=== PATIENT | female | born 1960 ===

== ENCOUNTER → 2018-12-02 | Day surgery (SDC) | payer BC ==
[2018-12-02] VITALS (9 sets, daily range): BP systolic 114–138; BP diastolic 62–74
[~2018-12-02] VITALS: Ht 157.5 cm; Wt 48.1 kg
[~2018-12-02] MED LIST: AMLODIPINE BESYL5 MG ORAL; ASPIR 8181 MG ORAL; DiphenhydrAMINE 50mg/ml Inj IVP PRN; LIPITOR10 MG ORAL; LISINOPRIL20 MG ORAL; LR 1000ml 1,000 ML IVLG SCH; LR 1000ml ONE; Lidocaine 1% MPF 10mg/ml 5ml ONE; METOPROLOL SUCC25 MG ORAL; Propofol 200mg/20ml IV ONE; vit B12 PO; vit D PO
--- NOTE | 2018-12-02 07:40 | Anethesia Preoperative Eval ---
Anesthesia Pre-op PMH/ROS General Date of Evaluation: Dec 02, 2018 Anesthesiologist: Ghulam ASA Score: ASA 2 Mallampati Score Class I : Soft palate, uvula, fauces, pillars visible Class II: Soft palate, uvula, fauces visible Class III: Soft palate, base of uvula visible Class IV: Only hard plate visible Mallampati Classification: Class II Surgeon: Violeta Diagnosis: Abdominal pain, screening Surgical Procedure: EGd and colonoscopy Anesthesia History: none Family History: no anesthesia problems Allergies: Coded Allergies: No Known Allergies (Unverified , 12/01/18) Medications: see eMAR Patient NPO?: Yes NPO Date: Dec 01, 2018 NPO Time: 22:00 Past Medical History Cardiovascular: Reports: HTN, other - HLD; Denies: CAD, SC, valve dz, arrhythmia Pulmonary: Denies: asthma, COPD, SHRUTI, other Gastrointestinal/Genitourinary: Reports: GERD; Denies: CRI, ESRD, other Neurologic/Psychiatric: Denies: dementia, CVA, depression/anxiety, TIA, other Endocrine: Denies: DM, hypothyroidism, steroids, other HEENT: Denies: cataract (L), cataract (R), glaucoma, KAIBAB (L), KAIBAB (R), other Hematology/Immune: Denies: anemia, DVT, bleeding disorder, other Musculoskeletal/Integumentary: Denies: OA, RA, DJD, DDD, edema, other PSxH Narrative: Denies Anesthesia Pre-op Phys. Exam Physician Exam see chart Constitutional: NAD Cardiovascular: RRR Respiratory: CTA Airway Exam Mallampati Score: Class II Anesthesia Pre-op A/P Labs see chart Studies Pre-op Studies: EKG - sr Risk Assessment & Plan Assessment: ASA II Plan: MAC Status Change Before Surgery: No Pre-Antibiotics Drug: N/a Judi Manuel MD Dec 02, 2018 07:40
--- NOTE | 2018-12-02 08:13 | Pre-Procedure Note/Attestation ---
Pre-Procedure Note/Attestation Complete Prior to Procedure Planned Procedure: not applicable Procedure Narrative: esophagogastroduodenoscopy colonoscopy Indications for Procedure Pre-Operative Diagnosis: abd pain screen Attestation I attest that I discussed the nature of the procedure; its benefits; risks and complications; and alternatives (and the risks and benefits of such alternatives ), prior to the procedure, with the patient (or the patient's legal accounts receivable representative). I attest that, if there was a reasonable possibility of needing a blood transfusion, the patient (or the patient's legal accounts receivable representative) was given the [facility] standardized written summary, pursuant to the [place] Blood Safety Act ([place] Health and Safety Code # 1645, as amended). I attest that I re-evaluated the patient just prior to the surgery and that there has been no change in the patient's H&P, except as documented below: Geraldine Mcdaniel MD Dec 02, 2018 08:13
--- NOTE | 2018-12-02 08:13 | Short Stay Surgery H&P ---
History of Present Illness History of Present Illness Chief Complaint see typed H&P HPI Javy Tejeda is a 58 year old female who was admitted on for Screening And Abdominal Pain Patient History Allergies: Coded Allergies: No Known Allergies (Unverified , 12/01/18) Medication History Scheduled Amlodipine Besylate* (Amlodipine Besylate*), 5 MG ORAL DAILY, (Reported) Aspirin* (Aspir 81*), 81 MG ORAL DAILY, (Reported) Atorvastatin Calcium* (Lipitor*), 10 MG ORAL DAILY, (Reported) Lisinopril (Lisinopril*), 20 MG ORAL DAILY, (Reported) Metoprolol Succinate* (Metoprolol Succinate*), 25 MG ORAL DAILY, (Reported) [vit D], 5,000 INTLU PO DAILY, (Reported) Physical Exam Vital Signs Last Vital Signs Date Time Temp Pulse Resp B/P (MAP) Pulse Ox O2 Delivery O2 Flow Rate FiO2 12/02/18 07:59 Room Air 12/02/18 07:59 98.0 73 18 138/65 100 Plan Attestation Are the patient's medical conditions optimized for surgery? Geraldine Mcdaniel MD Dec 02, 2018 08:13
--- NOTE | 2018-12-02 08:49 | Endoscopy Procedure Note ---
Endoscopy Procedure Note General Indication for Procedure: abd pain , screen Procedures Performed: EGD, colonoscopy Operative Findings/Diagnosis: 1 cm, occ tics, prox gastritis Specimen: yes Pt Tolerated Procedure Well: Yes Estimated Blood Loss: none Anesthesia Anesthesiologist: see attached Anesthesia: MAC Medications Medication Given: see anesthesia record Inserted Devices Implant(s) used?: No GI Core Measures 50 yrs or older w/o bx or poly: Yes 10yrs. F/U recommended: Yes If not recommended, why?: 18 years or older w/prev. colo: No <3yrs. since last colonoscopy: No Med reason:<3 yrs.: System Reason:<3 yrs.: Last colonoscopy >= to 3yrs: Yes Geraldine Mcdaniel MD Dec 02, 2018 08:49
--- NOTE | 2018-12-02 08:51 | Brief Operative Note ---
Immediate Post Operative Note Operative Note Chief Complaint: Abd pain, screen Pre-op Diagnosis: abd pain screen Procedure: egd/bx, colon screen Post-op Diagnosis: Post-op Diagnosis: same as pre-op Surgeon: mago Anesthesiologist: chai Anesthesia: MAC Specimen: yes Complications: none Condition: stable Fluids: recorded Estimated Blood Loss: none Implant(s) used?: No Geraldine Mcdaniel MD Dec 02, 2018 08:51
--- NOTE | 2018-12-02 08:53 | 48 Hour Post Anesthesia Eval ---
Post Anesthesia Evaluation Procedure: EGD and colonoscopy Date of Evaluation: Dec 02, 2018 Airway: patent Nausea: No Vomiting: No Hydration Status: adequate Cardiopulmonary Status: at baseline Mental Status/LOC: patient returned to baseline Post-Anesthesia Complications: 0 Follow-up care needed: ready to discharge Judi Manuel MD Dec 02, 2018 08:53
--- NOTE | 2018-12-02 08:53 | Immediate Post-Op Evaluation ---
Immediate Post-Op Evalulation Immediate Post-Op Evalulation Procedure: EGD and colonoscopy Date of Evaluation: Dec 02, 2018 Time of Evaluation: 08:53 IV Fluids: 500 Blood Products: 0 Estimated Blood Loss: 0 Urinary Output: 0 Blood Pressure Systolic: 114 Blood Pressure Diastolic: 62 Pulse Rate: 61 Respiratory Rate: 16 O2 Sat by Pulse Oximetry: 100 Temperature (Fahrenheit): 97 Pain Score (1-10): 0 Nausea: No Vomiting: No Complications 0 Patient Status: awake, reacts, patent, none Hydration Status: adequate Drug: N/A Judi Manuel MD Dec 02, 2018 08:53
--- NOTE | 2018-12-02 17:30 | Operative Note - Dictated ---
DATE OF OPERATION: 12/02/2018 GASTROENTEROLOGY PROCEDURE REPORT SURGEON: Geraldine Mcdaniel M.D. ANESTHESIOLOGIST: Dr. Wilburn. PRE-ENDOSCOPIC DIAGNOSES: 1. Abdominal pain. 2. Need for screening colonoscopy. POST-ENDOSCOPIC DIAGNOSES: 1. A 1 cm white base gastric ulcer, status post biopsy. The ulcer was found in the incisura of the stomach. 2. Proximal gastritis, status post biopsy of the possible fundus of the stomach. 3. Mild sigmoid diverticulosis. DESCRIPTION OF PROCEDURE: The procedure, its risks, indications, alternatives, and possible complications were explained to the patient and an informed consent was obtained. The patient was then sedated in the left lateral decubitus position and a diagnostic upper endoscope was introduced into oropharynx and advanced to the duodenum. The endoscope was then gradually withdrawn. The mucosa examined carefully. The rectal exam was done and the colonoscope was introduced into the rectum and advanced to the cecum. The cecum was identified by the appearance of the ileocecal valve. The colonoscope was then gradually withdrawn. The mucosa examined carefully. Examination of the terminal ileum mucosa did not reveal any abnormalities up to about 5 cm. The colonic mucosa were also normal except for some mild sigmoid diverticulosis. Retroflex of the rectum could not be performed due to leakage of air, but anterograde views were normal. Her rectal exam was also normal. The colonoscope was removed and the patient was sent to recovery in good condition. COMPLICATIONS: None. ASSESSMENT: This examination was notable for some proximal gastritis and a 1 cm gastric ulcer, which will be treated. The patient should also be checked for Helicobacter pylori infection. If positive, she should be treated for this infection as well. The patient will be advised to maintain a high-fiber diet to prevent formation of mild diverticulosis. RECOMMENDATIONS: 1. Prilosec 20 mg p.o. daily for two months. 2. Check and treat Helicobacter pylori if positive. 3. If Helicobacter pylori is negative then the patient will need long-term suppression with the histamine 2 blockers with continued aspirin use as needed. 4. High-fiber diet. Thank you for asking me to participate in the care of this patient. Geraldine Mcdaniel M.D. DR: ANTIONETTE JOB#: [id number] CC: Jean Pierre Alcazar M.D.; Fax#: [phone] GERALDINE MCDANIEL M.D. ; FAX#: [phone]
== END | disposition home or self-care (01) ==
LOC: GAS 06:53
DX: Z12.11 Encounter for screening for malignant neoplasm of colon (principal); R10.9 Unspecified abdominal pain; K25.9 Gastric ulcer, unspecified as acute or chronic, without hemorrhage or perforation; K57.90 Diverticulosis of intestine, part unspecified, without perforation or abscess without bleeding; K29.50 Unspecified chronic gastritis without bleeding; Z79.82 Long term (current) use of aspirin; Z79.899 Other long term (current) drug therapy; I10 Essential (primary) hypertension; E78.00 Pure hypercholesterolemia, unspecified; K21.9 Gastro-esophageal reflux disease without esophagitis; B96.81 Helicobacter pylori [H. pylori] as the cause of diseases classified elsewhere
CPT/HCPCS: 43239; 45378; J2704; 94003; 94150